=== PATIENT | male | born 1955 | race Two or more races ===

== ENCOUNTER → 2017-09-23 | Outpatient (CLI) | payer OTHER ==
[~2017-09-23] MED LIST: CIPROFLOXACIN500 M1 PO; LEVAQUIN500 MG PO; METFORMIN HCL1000 MG PO; METFORMIN HCL500 MG PO; SYNTHROID175 MCG PO; SYNTHROID200 MCG PO; TYLENOL WITH C1 EACH PO; ZOFRAN4 MG PO
== END | disposition home or self-care (01) ==
LOC: NUC 08:20
DX: G60.3 Idiopathic progressive neuropathy (principal)
CPT/HCPCS: 78607; A9584

== ENCOUNTER 2017-11-06 11:01 | Inpatient (IN) | payer OTHER ==
[2017-11-06] VITALS (8 sets, daily range): BP systolic 90–150; BP diastolic 58–129
[~2017-11-06] VITALS: Ht 165.1 cm; Wt 128.1 kg
[~2017-11-06 11:01] MED LIST changes: -METFORMIN HCL500 MG PO
[2017-11-06 11:26] LABS: COMMENTS - BLOOD GASES A+C+; DEVICE NRB; FI02 100 %; SITE RR; TOTAL RESP RATE 18 resp/min
[2017-11-06 11:27] LABS: CARBOXY HGB 3.5 % (0-5); METHEMOGLOBIN 1.1 % (0-1.5); PCO2 124 mm Hg (35-45); PO2 92 mm Hg (80-100)
[2017-11-06 11:29] LABS: pH 7.11 (7.35-7.45)
[2017-11-06 11:34] LABS: BASOPHIL (%) 0.5 % (0-1); BASOPHIL COUNT 0.1 K/uL (0-0.1); EOSINOPHIL (%) 1.8 % (0-5); EOSINOPHIL COUNT 0.3 K/uL (0-0.3); HEMATOCRIT 50.9 % (38.0-50.0); HEMOGLOBIN 14.3 G/DL (12.5-16.6); IMMATURE GRANULOCYTE (%) 0.5 % (0.0-0.7); LYMPHOCYTE (%) 14.4 % (15-42); LYMPHOCYTE COUNT 2.1 K/uL (1.0-2.8); MCH 25.6 PG (29.0-34.0); MCHC 28.1 G/DL (30.0-36.0); MCV 91.2 FL (86-99); MONOCYTE (%) 5.9 % (3-12); MONOCYTE COUNT 0.9 K/uL (0-0.8); NEUTROPHIL (%) 76.9 % (45-76); NEUTROPHIL COUNT 11.1 K/uL (1.8-6.4); PLATELET COUNT 284 K/uL (156-360); RBC DIS.WIDTH-CV 18.3 % (11.8-14.6); RED BLOOD COUNT 5.58 M/uL (4.00-5.50); WHITE BLOOD COUNT 14.4 K/uL (4.1-10.2)
[2017-11-06 11:44] LABS: CHLORIDE 89 mEq/L (99-109); POTASSIUM 5.2 mEq/L (3.7-5.4); SODIUM 136 mEq/L (136-147)
[2017-11-06 11:47] LABS: INTER. NORMALIZED RATIO 1.1
[2017-11-06 11:49] LABS: GLUCOSE 492 mg/dL (70-99)
[2017-11-06 11:50] LABS: GFR ESTIMATE (CALCULATED) > 59 mL/min/ (58.99-99999); UREA NITROGEN (BUN) 26 mg/dL (9-23)
[2017-11-06 11:55] LABS: TROP-I INTERPRETATION NEGATIVE; TROPONIN-I 0.01 ng/mL (0.0-0.30)
[2017-11-06 12:21] LABS: COMMENTS - BLOOD GASES A+C+; DEVICE VENT; FI02 70 %; MODE ACVC; SITE RR
[2017-11-06 12:22] LABS: MECHANICAL RATE 14 resp/min; PCO2 90 mm Hg (35-45); PEEP 8 CM/H20; PO2 88 mm Hg (80-100); TIDAL VOLUME 580 ML; TOTAL RESP RATE 14 resp/min
[2017-11-06 12:23] LABS: BASE EXCESS 10.6 mEq/L (-3 to +3); BICARBONATE 41.3 mEq/L (22-26); CARBOXY HGB 3.4 % (0-5); pH 7.27 (7.35-7.45)
[2017-11-06 15:12] LABS: COMMENTS - BLOOD GASES A+C+; DEVICE VENT; FI02 80 %; SITE RR
[2017-11-06 15:13] LABS: MECHANICAL RATE 18 resp/min; MODE ACVC; PEEP 8 CM/H20; TIDAL VOLUME 580 ML; TOTAL RESP RATE 18 resp/min
[2017-11-06 15:14] LABS: BASE EXCESS 11.1 mEq/L (-3 to +3); METHEMOGLOBIN 1.3 % (0-1.5); PCO2 52 mm Hg (35-45); PO2 65 mm Hg (80-100); pH 7.46 (7.35-7.45)
[2017-11-06 15:52] LABS: APPEARANCE TURBID ((CLEAR)); BILIRUBIN NEGATIVE; BLOOD NEGATIVE; COLOR AMBER ((YELLOW)); GLUCOSE (STRIP) >=500; KETONES NEGATIVE; LEUKOCYTES NEGATIVE; NITRITE NEGATIVE; PROTEIN (STRIP) 100; SPECIFIC GRAVITY 1.024 (1.000-1.030); UROBILINOGEN 0.2 MG/DL (0.2-1.0)
[2017-11-06 17:13] LABS: EPITHELIAL CELLS RARE /HPF; RED BLOOD CELLS NONE SEEN /HPF (0-5); WHITE BLOOD CELLS NONE SEEN /HPF (0-5)
[2017-11-06 17:14] LABS: AMORPHOUS URATES CRYSTALS 2+; BACTERIA 1+ /HPF; MUCUS NONE SEEN /LPF; UCUL ADDED? NO
[2017-11-06] MEDS ORDERED: ATORVASTATIN CA80 MG PO (17:58)
[2017-11-06] MEDS ORDERED: BASAGLAR K100 UNIT/1 SC (17:59)
[2017-11-06] MEDS ORDERED: LAMOTRIGINE25 MG PO (17:59)
[2017-11-06] MEDS ORDERED: GABAPENTIN300 MG PO (17:59)
[2017-11-06] MEDS ORDERED: LISINOPRIL20 MG PO (17:59)
[2017-11-06] MEDS ORDERED: ERGOCALCIF50000 UNIT PO (18:00)
[2017-11-06] MEDS ORDERED: LASIX20 MG PO (18:00)
[2017-11-07] VITALS (25 sets, daily range): BP systolic 86–147; BP diastolic 64–120
[2017-11-07 05:30] LABS: COMMENTS - BLOOD GASES C+A+; DEVICE VENT; FI02 75 %; MECHANICAL RATE 16 resp/min; MODE AC; PCO2 53 mm Hg (35-45); PEEP 8 CM/H20; SITE RR; TIDAL VOLUME 580 ML; TOTAL RESP RATE 16 resp/min; pH 7.43 (7.35-7.45)
[2017-11-07 05:31] LABS: BICARBONATE 35.2 mEq/L (22-26); CARBOXY HGB 2.1 % (0-5); METHEMOGLOBIN 0.9 % (0-1.5); O2 SATURATION (CALCULATED) 94.9 % (95-99); PO2 63 mm Hg (80-100)
[2017-11-08] VITALS (23 sets, daily range): BP systolic 89–140; BP diastolic 56–80
[2017-11-08 05:17] LABS: COMMENTS - BLOOD GASES C+A+; DEVICE VENT; FI02 75 %; MECHANICAL RATE 16 resp/min; MODE AC; PEEP 8 CM/H20; SITE RR; TIDAL VOLUME 580 ML; TOTAL RESP RATE 16 resp/min
[2017-11-08 05:18] LABS: BASE EXCESS 7.7 mEq/L (-3 to +3); BICARBONATE 34.5 mEq/L (22-26); CARBOXY HGB 1.7 % (0-5); PCO2 57 mm Hg (35-45); PO2 81 mm Hg (80-100); pH 7.39 (7.35-7.45)
[2017-11-08 06:01] LABS: TRIGLYCERIDES 186 MG/DL (Normal: <150)
[2017-11-08 06:02] LABS: CHLORIDE 95 MEQ/L (99-109); CREATININE 0.7 MG/DL (0.6-1.3); GFR ESTIMATE (CALCULATED) > 59 mL/min/ (58.99-99999); SODIUM 135 MEQ/L (136-147); UREA NITROGEN (BUN) 27 mg/dL (9-23)
[2017-11-08 06:04] LABS: POTASSIUM 3.7 MEQ/L (3.7-5.4)
[2017-11-08 06:32] LABS: GLUCOSE 478 mg/dL (70-99)
[2017-11-09] VITALS (23 sets, daily range): BP systolic 97–136; BP diastolic 49–80
[2017-11-09 06:38] LABS: BASOPHIL (%) 0 % (0-1); EOSINOPHIL (%) 0 % (0-5); HEMATOCRIT 45.1 % (38.0-50.0); HEMOGLOBIN 13.1 G/DL (12.5-16.6); IMMATURE GRANULOCYTE (%) 0.2 % (0.0-0.7); LYMPHOCYTE (%) 8.6 % (15-42); LYMPHOCYTE COUNT 0.7 K/uL (1.0-2.8); MCH 25.1 PG (29.0-34.0); MCV 86.6 FL (86-99); MONOCYTE (%) 3.1 % (3-12); MONOCYTE COUNT 0.3 K/uL (0-0.8); NEUTROPHIL (%) 88.1 % (45-76); NEUTROPHIL COUNT 7.2 K/uL (1.8-6.4); PLATELET COUNT 234 K/uL (156-360); RBC DIS.WIDTH-CV 17.4 % (11.8-14.6); RBC DIS.WIDTH-SD 54.9 % (39-53); RED BLOOD COUNT 5.21 M/uL (4.00-5.50); WHITE BLOOD COUNT 8.1 K/uL (4.1-10.2)
[2017-11-09 07:37] LABS: CHLORIDE 97 MEQ/L (99-109); CREATININE 0.6 MG/DL (0.6-1.3); GFR ESTIMATE (CALCULATED) > 59 mL/min/ (58.99-99999); POTASSIUM 4.2 MEQ/L (3.7-5.4); SODIUM 139 MEQ/L (136-147); UREA NITROGEN (BUN) 37 mg/dL (9-23)
[2017-11-09 07:43] LABS: GLUCOSE 422 mg/dL (70-99)
[2017-11-10] VITALS (23 sets, daily range): BP systolic 17–148; BP diastolic 53–90
[2017-11-10 12:08] LABS: COMMENTS - BLOOD GASES A+C+; DEVICE VENT; FI02 40 %; SITE LR
[2017-11-10 12:09] LABS: BASE EXCESS 8.4 mEq/L (-3 to +3); BICARBONATE 37.4 mEq/L (22-26); CARBOXY HGB 2.2 % (0-5); METHEMOGLOBIN 0.9 % (0-1.5); MODE SPONT; PCO2 71 mm Hg (35-45); PEEP 8 CM/H20; PO2 64 mm Hg (80-100); PRES. SUPPORT 10 CM/H2O; TOTAL RESP RATE 11 resp/min; pH 7.33 (7.35-7.45)
[2017-11-10 17:01] LABS: BASOPHIL (%) 0.2 % (0-1); EOSINOPHIL (%) 0 % (0-5); HEMATOCRIT 47.9 % (38.0-50.0); IMMATURE GRANULOCYTE (%) 0.3 % (0.0-0.7); LYMPHOCYTE (%) 3.7 % (15-42); LYMPHOCYTE COUNT 0.5 K/uL (1.0-2.8); MCH 25.5 PG (29.0-34.0); MCHC 29.2 G/DL (30.0-36.0); MCV 87.4 FL (86-99); MONOCYTE (%) 1.7 % (3-12); MONOCYTE COUNT 0.2 K/uL (0-0.8); NEUTROPHIL (%) 94.1 % (45-76); NEUTROPHIL COUNT 11.4 K/uL (1.8-6.4); PLATELET COUNT 240 K/uL (156-360); RBC DIS.WIDTH-CV 17.6 % (11.8-14.6); RBC DIS.WIDTH-SD 55.6 % (39-53); RED BLOOD COUNT 5.48 M/uL (4.00-5.50); WHITE BLOOD COUNT 12.1 K/uL (4.1-10.2)
[2017-11-10 17:14] LABS: ALBUMIN 3.2 g/dL (3.2-4.8)
[2017-11-10 17:15] LABS: SODIUM 141 mEq/L (136-147)
[2017-11-10 17:17] LABS: GLUCOSE 264 mg/dL (70-99); TOTAL PROTEIN 6.1 g/dL (6.4-8.3)
[2017-11-10 17:19] LABS: TOTAL BILIRUBIN 0.9 mg/dL (0.0-1.0)
[2017-11-10 17:20] LABS: ALKALINE PHOSPHATASE 41 IU/L (3-129); CREATININE 0.7 mg/dL (0.6-1.3); GFR ESTIMATE (CALCULATED) > 59 mL/min/ (58.99-99999)
[2017-11-10 17:22] LABS: AST (GOT) 49 IU/L (2-34); CHLORIDE 99 mEq/L (99-109); UREA NITROGEN (BUN) 34 mg/dL (9-23)
[2017-11-10 17:23] LABS: ALT (GPT) 39 IU/L (3-49)
[2017-11-11] VITALS (14 sets, daily range): BP systolic 115–159; BP diastolic 57–90
[2017-11-11 05:43] LABS: BASOPHIL (%) 0.1 % (0-1); EOSINOPHIL (%) 0 % (0-5); HEMATOCRIT 48.3 % (38.0-50.0); HEMOGLOBIN 13.8 G/DL (12.5-16.6); IMMATURE GRANULOCYTE (%) 0.5 % (0.0-0.7); LYMPHOCYTE (%) 6.2 % (15-42); LYMPHOCYTE COUNT 0.6 K/uL (1.0-2.8); MCH 24.9 PG (29.0-34.0); MCHC 28.6 G/DL (30.0-36.0); MCV 87.2 FL (86-99); MONOCYTE (%) 1.8 % (3-12); MONOCYTE COUNT 0.2 K/uL (0-0.8); NEUTROPHIL (%) 91.4 % (45-76); PLATELET COUNT 237 K/uL (156-360); RBC DIS.WIDTH-CV 17.1 % (11.8-14.6); RBC DIS.WIDTH-SD 54.4 % (39-53); RED BLOOD COUNT 5.54 M/uL (4.00-5.50); WHITE BLOOD COUNT 9.9 K/uL (4.1-10.2)
[2017-11-11 06:38] LABS: CHLORIDE 98 MEQ/L (99-109); CREATININE 0.5 MG/DL (0.6-1.3); GFR ESTIMATE (CALCULATED) > 59 mL/min/ (58.99-99999); MAGNESIUM 1.9 mg/dl (1.3-2.7); PHOSPHORUS 5.3 mg/dL (2.5-4.9); POTASSIUM 4.8 MEQ/L (3.7-5.4); SODIUM 142 MEQ/L (136-147); UREA NITROGEN (BUN) 31 mg/dL (9-23)
[2017-11-11 06:41] LABS: GLUCOSE 131 mg/dL (70-99)
[2017-11-11 13:48] LABS: COMMENTS - BLOOD GASES A+C+; DEVICE HHFNC; SITE RR
[2017-11-11 13:49] LABS: CARBOXY HGB 2.2 % (0-5); FI02 70 %; O2 FLOW 40 L/MIN; PCO2 57 mm Hg (35-45); PO2 81 mm Hg (80-100)
[2017-11-11 13:50] LABS: BASE EXCESS 8.4 mEq/L (-3 to +3); BICARBONATE 35.3 mEq/L (22-26)
[2017-11-12 00:55] VITALS: BP 137/75
[2017-11-12 04:39] VITALS: BP 131/70
[2017-11-12 05:41] LABS: BASOPHIL (%) 0.1 % (0-1); EOSINOPHIL (%) 0 % (0-5); HEMATOCRIT 48.3 % (38.0-50.0); HEMOGLOBIN 13.7 G/DL (12.5-16.6); IMMATURE GRANULOCYTE (%) 0.5 % (0.0-0.7); LYMPHOCYTE (%) 6.8 % (15-42); LYMPHOCYTE COUNT 0.8 K/uL (1.0-2.8); MCH 24.9 PG (29.0-34.0); MCHC 28.4 G/DL (30.0-36.0); MCV 87.8 FL (86-99); MONOCYTE (%) 3.2 % (3-12); MONOCYTE COUNT 0.4 K/uL (0-0.8); NEUTROPHIL (%) 89.4 % (45-76); NEUTROPHIL COUNT 10.1 K/uL (1.8-6.4); PLATELET COUNT 271 K/uL (156-360); RBC DIS.WIDTH-CV 17.7 % (11.8-14.6); RBC DIS.WIDTH-SD 55.7 % (39-53); WHITE BLOOD COUNT 11.2 K/uL (4.1-10.2)
[2017-11-12 06:00] LABS: CHLORIDE 94 MEQ/L (99-109); CREATININE 0.6 MG/DL (0.6-1.3); GFR ESTIMATE (CALCULATED) > 59 mL/min/ (58.99-99999); GLUCOSE 125 mg/dL (70-99); MAGNESIUM 1.8 mg/dl (1.3-2.7); PHOSPHORUS 5.8 mg/dL (2.5-4.9); POTASSIUM 4.9 MEQ/L (3.7-5.4); SODIUM 138 MEQ/L (136-147); UREA NITROGEN (BUN) 27 mg/dL (9-23)
[2017-11-12 08:05] VITALS: BP 136/73
[2017-11-12 12:05] VITALS: BP 134/72
[2017-11-12 16:55] VITALS: BP 146/78
[2017-11-12 20:00] VITALS: BP 143/75
[2017-11-13] VITALS: BP 132/69; BP 145/100
[2017-11-13 04:00] VITALS: BP 116/65
[2017-11-13 07:02] LABS: BASOPHIL (%) 0.2 % (0-1); EOSINOPHIL (%) 2.8 % (0-5); EOSINOPHIL COUNT 0.4 K/uL (0-0.3); HEMATOCRIT 48.5 % (38.0-50.0); HEMOGLOBIN 14.1 G/DL (12.5-16.6); IMMATURE GRANULOCYTE (%) 0.5 % (0.0-0.7); LYMPHOCYTE (%) 13.2 % (15-42); LYMPHOCYTE COUNT 1.9 K/uL (1.0-2.8); MCHC 29.1 G/DL (30.0-36.0); MCV 86.1 FL (86-99); MONOCYTE (%) 7.1 % (3-12); NEUTROPHIL (%) 76.2 % (45-76); NEUTROPHIL COUNT 10.7 K/uL (1.8-6.4); PLATELET COUNT 253 K/uL (156-360); RBC DIS.WIDTH-CV 17.4 % (11.8-14.6); RED BLOOD COUNT 5.63 M/uL (4.00-5.50)
[2017-11-13 07:27] VITALS: BP 144/83
[2017-11-13 07:46] LABS: ALKALINE PHOSPHATASE 34 IU/L (3-129); ALT (GPT) 40 IU/L (3-49); AST (GOT) 29 IU/L (2-34); CHLORIDE 91 MEQ/L (99-109); CREATININE 0.5 MG/DL (0.6-1.3); GFR ESTIMATE (CALCULATED) > 59 mL/min/ (58.99-99999); MAGNESIUM 1.7 mg/dl (1.3-2.7); PHOSPHORUS 4.2 mg/dL (2.5-4.9); POTASSIUM 4.2 MEQ/L (3.7-5.4); SODIUM 138 MEQ/L (136-147); TOTAL BILIRUBIN 0.9 MG/DL (0.0-1.0); TOTAL PROTEIN 5.5 G/DL (6.4-8.3); UREA NITROGEN (BUN) 22 mg/dL (9-23)
[2017-11-13 07:57] LABS: CARBON DIOXIDE (BICARBONATE) > 40.0 MEQ/L (20-31); GLUCOSE 65 mg/dL (70-99)
[2017-11-13 11:56] VITALS: BP 136/75
[2017-11-13 15:22] VITALS: BP 133/69
[2017-11-13 20:11] VITALS: BP 134/63
[2017-11-14 00:21] VITALS: BP 134/73
[2017-11-14 03:57] VITALS: BP 114/54
[2017-11-14 06:16] LABS: BASOPHIL (%) 0.1 % (0-1); EOSINOPHIL (%) 3.2 % (0-5); EOSINOPHIL COUNT 0.5 K/uL (0-0.3); HEMATOCRIT 48.7 % (38.0-50.0); HEMOGLOBIN 14.1 G/DL (12.5-16.6); IMMATURE GRANULOCYTE (%) 0.6 % (0.0-0.7); LYMPHOCYTE (%) 14.8 % (15-42); LYMPHOCYTE COUNT 2.2 K/uL (1.0-2.8); MCH 24.9 PG (29.0-34.0); MONOCYTE (%) 8.1 % (3-12); MONOCYTE COUNT 1.2 K/uL (0-0.8); NEUTROPHIL (%) 73.2 % (45-76); NEUTROPHIL COUNT 10.6 K/uL (1.8-6.4); PLATELET COUNT 269 K/uL (156-360); RBC DIS.WIDTH-CV 16.7 % (11.8-14.6); RBC DIS.WIDTH-SD 52.1 % (39-53); RED BLOOD COUNT 5.66 M/uL (4.00-5.50); WHITE BLOOD COUNT 14.5 K/uL (4.1-10.2)
[2017-11-14] MEDS ORDERED: PREDNISONE20 MG PO (06:32)
[2017-11-14 06:39] LABS: MAGNESIUM 1.5 mg/dl (1.3-2.7)
[2017-11-14 06:41] LABS: ALBUMIN 2.9 G/DL (3.2-4.8); ALKALINE PHOSPHATASE 33 IU/L (3-129); ALT (GPT) 32 IU/L (3-49); AST (GOT) 21 IU/L (2-34); CHLORIDE 89 MEQ/L (99-109); CREATININE 0.6 MG/DL (0.6-1.3); GFR ESTIMATE (CALCULATED) > 59 mL/min/ (58.99-99999); POTASSIUM 3.5 MEQ/L (3.7-5.4); SODIUM 140 MEQ/L (136-147); TOTAL BILIRUBIN 0.8 MG/DL (0.0-1.0); TOTAL PROTEIN 5.3 G/DL (6.4-8.3); UREA NITROGEN (BUN) 19 mg/dL (9-23)
[2017-11-14 06:43] LABS: GLUCOSE 83 mg/dL (70-99)
[2017-11-14 06:55] LABS: CARBON DIOXIDE (BICARBONATE) > 40.0 MEQ/L (20-31)
[2017-11-14 07:43] VITALS: BP 108/56
[2017-11-14 11:31] VITALS: BP 119/69
== END 2017-11-14 16:38 | disposition home or self-care (01) | DRG 207 ==
LOC: EME → EDBD 11:19 → EME 11:19 → EDOF 13:31 → 4WEST 13:31 → ENRESERV 13:43 → CANRESERV 13:47 → ENRESERV 14:14 → 4WEST 16:19 → ENRESERV 11-11 14:37 → 5SOUTH 11-11 17:18
PROVIDERS: Emergency Medicine; Hospitalist; Internal Medicine; Internal Medicine Critical Care Medicine; Surgery
DX: J96.21 Acute and chronic respiratory failure with hypoxia (principal); J96.22 Acute and chronic respiratory failure with hypercapnia; J44.0 Chronic obstructive pulmonary disease with (acute) lower respiratory infection; J15.9 Unspecified bacterial pneumonia; J44.1 Chronic obstructive pulmonary disease with (acute) exacerbation; Z99.81 Dependence on supplemental oxygen; E11.65 Type 2 diabetes mellitus with hyperglycemia; E11.21 Type 2 diabetes mellitus with diabetic nephropathy; R41.82 Altered mental status, unspecified; I10 Essential (primary) hypertension; E78.5 Hyperlipidemia, unspecified; G40.909 Epilepsy, unspecified, not intractable, without status epilepticus; E03.9 Hypothyroidism, unspecified; F17.200 Nicotine dependence, unspecified, uncomplicated; E66.2 Morbid (severe) obesity with alveolar hypoventilation; Z68.42 Body mass index [BMI] 45.0-49.9, adult; Z78.1 Physical restraint status; Z79.84 Long term (current) use of oral hypoglycemic drugs
CPT/HCPCS: 36600; 71045; 71046; 80048; 80053; 81003; 82948; 83605; 83735; 83880; 84100; 84478; 84484; 85025; 85610; 85730; 87040; 87070; 87205; 87641; 93005; 94002; 94003; 94640; 94660; 94760; 94799; 99281; 99285; J0295; J0330; J1650; J1815; J1940; J2060; J2250; J2543; J2704; J2930; J3010; J3370; J7030; J7050; J7512; S0028